=== PATIENT | female | born 2000 | race Caucasian/White ===

== ENCOUNTER 2019-06-06 13:48 | Emergency (ER) | payer OTHER ==
[2019-06-06 14:06] VITALS: BP 141/76
--- NOTE | 2019-06-06 14:41 | XRAY Report ---
Reason: injury Procedure Date: 06/06/2019 Accession Number: [id number] / [id number] Procedure: XR - Ankle 3 View LT CPT Code: FULL RESULT: EXAM: LEFT ANKLE RADIOGRAPHY EXAM DATE: 06/06/2019 02:14 PM. CLINICAL HISTORY: Ankle pain post injury. COMPARISON: None. TECHNIQUE: 3 views. FINDINGS: Bones: Normal. No fractures or bone lesions. Joints: Normal. No effusion. No subluxations. The ankle mortise is normally aligned. Soft Tissues: No soft tissue swelling. IMPRESSION: Negative ankle radiography. [facility]
--- NOTE | 2019-06-06 15:04 | ED Physician Documentation ---
History of Present Illness - Stated complaint Stated Complaint: LT ANKLE INJURY - Chief complaint Chief Complaint: Trauma Ext - Additonal information Additional information: This is a 18-year-old female denies past medical history, who presents with left Ankle pain. Patient was walking last night she stepped into a divot and had an inversion injury of her left ankle. She had immediate pain, which is continued today. She denies injury to other parts of her body. She has not injured this ankle significantly in the past. Her pain is currently moderate in severity, more severe with palpation and with movement. She has been able to bear weight on it. Review of Systems Constitutional: denies: Fever Cardiac: denies: Chest pain / pressure Musculoskeletal: reports: Joint pain PD PAST MEDICAL HISTORY - Present Medications Home Medications: Ambulatory Orders Medication Instructions Recorded Confirmed Ibuprofen [Motrin] 600 mg PO Q6H PRN #30 tab 06/06/19 - Allergies Allergies/Adverse Reactions: Allergies Allergy/AdvReac Type Severity Reaction Status Date / Time naproxen [From Aleve] Allergy Unknown Verified 06/06/19 14:04 - Social History Does the pt smoke?: Yes Smoking Status: Current every day smoker Does the pt drink ETOH?: Yes Does the pt have substance abuse?: No - Immunizations Immunizations are current?: Yes PD ED PE NORMAL - Vitals Vital signs reviewed: Yes - General General: Alert and oriented X 3, No acute distress - Cardiac Cardiac: RRR - Abdomen Abdomen: Non distended - Derm Derm: Warm and dry - Extremities Extremities: Other (There is edema and mild ecchymosis over the the lateral left malleolus. She has tenderness maximal over the area of the anterior talofibular ligament. Sensation is intact to light touch over the entire foot, capillary refill is brisk less than 2 seconds, Patient able to dorsiflex and plantarflex her ankle with some discomfort. She is able to ambulate.) - Neuro Neuro: Alert and oriented X 3 - Psych Psych: Normal mood, Normal affect Results - Vitals Vitals: Vital Signs - 24 hr 06/06/19 14:04 Temperature 36.4 C L Heart Rate 102 H Respiratory 16 Rate Blood Pressure 141/76 H O2 Saturation 97 Oxygen O2 Source Room air PD MEDICAL DECISION MAKING - ED course Complexity details: considered differential (Sprain, strain, contusion, fracture, dislocation) ED course: Patient was seen for Ankle pain after inversion injury. She has tenderness over the region of the anterior talofibular liagament.. X-ray shows no acute osseous abnormality patient and patient is able to bear weight on the ankle and walk. I discussed that she appears to have an ankle sprain, I discussed supportive care provided Nilesh wrap. I recommend that she follow-up with her primary care provider if she is having continued symptoms in 1 week, also described return precautions that would require more immediate care in the emergency department. Patient agrees this plan was discharged in the care of family. She was Prescribed ibuprofen, she has an allergy to naproxen but tolerates ibuprofen without issue. Departure - Departure Disposition: Home, Self Care Clinical Impression: Ankle injury Instructions: ED Sprain Ankle W X Ray Follow-Up: Your,PCP [Other] (In 1 week if you have continued pain) Prescriptions: Ibuprofen [Motrin] 600 mg PO Q6H PRN #30 tab PRN Reason: Pain Comments: You appear to have an ankle sprain. Please use Nilesh wrap, elevate your foot, and ice it. Take ibuprofen as directed. Avoid activities that will cause worsening of your pain, and follow-up with your primary care provider if needed if your symptoms are not improving in 1 week. Forms: Activity restrictions Discharge Date/Time: 06/06/19 15:34
== END 2019-06-06 15:34 | disposition home or self-care (01) ==
LOC: ED 13:48
DX: S99.912A Unspecified injury of left ankle, initial encounter (principal); X50.1XXA Overexertion from prolonged static or awkward postures, initial encounter; Y93.01 Activity, walking, marching and hiking; F17.200 Nicotine dependence, unspecified, uncomplicated
CPT/HCPCS: 99282; 99283